=== PATIENT | male | born 1995 | race African-American/Black ===

== ENCOUNTER 2017-09-11 19:32 | Emergency (ER) | payer OTHER ==
[~2017-09-11] VITALS: Ht 188 cm; Wt 118.0 kg
[~2017-09-11 19:32] MED LIST: AMOX/K CLAV875 M1 PO; AMOXIL500 MG OR; LORATADINE10 M1 PO; LOTRISONE CREAM15 GM EX; MEDDOSEPAK PO; NAPROSYN375 MG PO; NAPROSYN500 MG PO; NO; NO HOME MEDS; NO MEDS; TRIMOX500 MG PO
[2017-09-11 20:50] VITALS: BP 150/90
== END 2017-09-11 20:50 | disposition home or self-care (01) | DRG 607 ==
LOC: ED 19:32
DX: L73.8 Other specified follicular disorders (principal)

== ENCOUNTER 2018-04-30 13:33 | Emergency (ER) | payer OTHER ==
[~2018-04-30] VITALS: Ht 188 cm; Wt 136.4 kg
[2018-04-30 13:45] VITALS: BP 128/82
[2018-04-30] MEDS ORDERED: BENADRYL 50MG C50 MG PO (13:50)
[2018-04-30] MEDS ORDERED: HYDROCORT0.51 EX (13:50)
== END 2018-04-30 13:54 | disposition home or self-care (01) | DRG 607 ==
LOC: ED 13:33
DX: L25.9 Unspecified contact dermatitis, unspecified cause (principal)

== ENCOUNTER 2018-06-27 15:14 | Emergency (ER) | payer OTHER ==
[~2018-06-27] VITALS: Ht 188 cm; Wt 149.0 kg
[~2018-06-27 15:14] MED LIST changes: +BENADRYL 50MG C50 MG PO; +HYDROCORT0.51 EX
[2018-06-27] MEDS ORDERED: TORADOL PO (16:47)
[2018-06-27 16:51] VITALS: BP 127/83
== END 2018-06-27 16:52 | disposition home or self-care (01) | DRG 556 ==
LOC: ED 15:14
DX: M25.561 Pain in right knee (principal)

== ENCOUNTER 2018-07-05 02:35 | Emergency (ER) | payer OTHER ==
[~2018-07-05] VITALS: Ht 188 cm; Wt 139.8 kg
[~2018-07-05 02:35] MED LIST changes: +TORADOL PO
[2018-07-05 03:34] VITALS: BP 142/83
== END 2018-07-05 03:41 | disposition home or self-care (01) | DRG 93 ==
LOC: ED 02:35
DX: R20.2 Paresthesia of skin (principal)

== ENCOUNTER 2018-07-22 12:43 | Emergency (ER) | payer OTHER ==
[~2018-07-22] VITALS: Ht 188 cm; Wt 136.4 kg
[2018-07-22 13:32] LABS: URINE BILIRUBIN - DIPSTICK NEGATIVE (NEGATIVE); URINE BLOOD DIPSTICK NEGATIVE (NEGATIVE); URINE COLOR YELLOW; URINE GLUCOSE - DIPSTICK NEGATIVE (NEGATIVE); URINE KETONE 15 mg/dL (NEGATIVE); URINE LEUK ESTERASE NEGATIVE (NEGATIVE); URINE NITRITE - DIPSTICK NEGATIVE (Negative); URINE PH 5.5 (4.5-8.0); URINE PROTEIN - DIPSTICK NEGATIVE (NEG-TRACE); URINE SPECIFIC GRAVITY >=1.030; URINE UROBILINOGEN - DIPSTICK 0.2 E.U./dL (0.2)
[2018-07-22 13:34] LABS: URINE CLARITY CLEAR
[2018-07-22] MEDS ORDERED: PYRIDIUM200 MG PO (14:13)
[2018-07-22 14:30] VITALS: BP 148/74
== END 2018-07-22 14:30 | disposition home or self-care (01) | DRG 690 ==
LOC: ED 12:43
PROVIDERS: Emergency Medicine
DX: N34.2 Other urethritis (principal)

== ENCOUNTER 2019-04-09 00:44 | Emergency (ER) | payer OTHER ==
[~2019-04-09] VITALS: Ht 188 cm; Wt 136.0 kg
[~2019-04-09 00:44] MED LIST changes: +PYRIDIUM200 MG PO
[2019-04-09 01:25] VITALS: BP 126/74
== END 2019-04-09 01:25 | disposition home or self-care (01) | DRG 93 ==
LOC: ED 00:44
DX: R20.2 Paresthesia of skin (principal)

== ENCOUNTER 2019-05-01 04:33 | Emergency (ER) | payer OTHER ==
[~2019-05-01] VITALS: Ht 188 cm; Wt 140.2 kg
[2019-05-01 05:42] LABS: URINE BILIRUBIN - DIPSTICK NEGATIVE (NEGATIVE); URINE BLOOD DIPSTICK NEGATIVE (NEGATIVE); URINE COLOR YELLOW; URINE GLUCOSE - DIPSTICK NEGATIVE (NEGATIVE); URINE KETONE NEGATIVE (NEGATIVE); URINE LEUK ESTERASE NEGATIVE (NEGATIVE); URINE NITRITE - DIPSTICK NEGATIVE (Negative); URINE PH 5.5 (4.5-8.0); URINE PROTEIN - DIPSTICK NEGATIVE (NEG-TRACE); URINE SPECIFIC GRAVITY >=1.030; URINE UROBILINOGEN - DIPSTICK 0.2 E.U./dL (0.2)
[2019-05-01 05:42] LABS: HEMATOCRIT 41.5 % (39.0-50.0); HEMOGLOBIN 13.2 g/dl (14.0-18.0); IMMATURE GRANULOCYTES 0.2 % (0.0-5.0); MEAN CELL VOLUME 86.6 fL CALC (80.0-100.0); MEAN CORPUSCULAR HGB 27.6 pG CALC (26.0-32.0); MEAN CORPUSCULAR HGB CONC 31.8 g/L CALC (32.0-36.0); NEUT# 2.16 thou/uL (1.82-7.42); RED BLOOD COUNT 4.79 mill/uL (4.70-6.10); RED CELL DISTRI WIDTH 13.8 % (11.5-15.5)
[2019-05-01 05:59] LABS: AMYLASE 63 u/l (30-110); ANION GAP 13 (6-22 (CALC)); BUN 13 mg/dL (9-20); BUN/CREATININE RATIO 16 (12-20 (CALC)); CARBON DIOXIDE 24 mmol/l (22-30); CHLORIDE 108 mmol/l (95-108); CREATININE 0.9 mg/dL (0.7-1.3); GFR > 60 ML/MIN (>=60 (CALC)); GFR FOR AFR.AMER. > 60 ML/MIN (>=60 (CALC)); LIPASE 92 u/l (23-300); POTASSIUM 3.7 mmol/l (3.5-5.1); SGOT/AST 27 u/l (17-59); SODIUM 141 mmol/l (137-146); TOTAL PROTEIN 7.8 g/dL (6.3-8.2)
[2019-05-01 06:00] LABS: ALKALINE PHOSPHATASE 93 u/l (38-126); BILIRUBIN, TOTAL 0.3 mg/dL (0.0-1.4)
[2019-05-01] MEDS ORDERED: MIRALAX3350 N1 PO (06:12)
[2019-05-01] MEDS ORDERED: NYSTATI1 TOP (06:12)
[2019-05-01 06:34] VITALS: BP 119/78
== END 2019-05-01 06:34 | disposition home or self-care (01) | DRG 392 ==
LOC: ED 04:33
PROVIDERS: Family Medicine
DX: K59.00 Constipation, unspecified (principal); R11.0 Nausea; B35.6 Tinea cruris

== ENCOUNTER 2020-06-10 19:20 | Emergency (ER) | payer OTHER ==
[~2020-06-10] VITALS: Ht 188 cm; Wt 136.3 kg
[~2020-06-10 19:20] MED LIST changes: +MIRALAX3350 N1 PO; +NYSTATI1 TOP
[2020-06-10] MEDS ORDERED: TRIAMCINOLON0.0252 EX (19:35)
[2020-06-10 19:53] VITALS: BP 132/72
== END 2020-06-10 19:53 | disposition home or self-care (01) | DRG 607 ==
LOC: ED 19:20
DX: L30.9 Dermatitis, unspecified (principal)

== ENCOUNTER 2020-09-18 20:14 | Emergency (ER) | payer OTHER ==
[~2020-09-18] VITALS: Ht 188 cm; Wt 136.4 kg
[~2020-09-18 20:14] MED LIST changes: +TRIAMCINOLON0.0252 EX
[2020-09-18 20:18] VITALS: BP 127/85
== END 2020-09-18 20:45 | disposition home or self-care (01) | DRG 880 ==
LOC: ED 20:14
DX: F41.9 Anxiety disorder, unspecified (principal); N52.9 Male erectile dysfunction, unspecified

== ENCOUNTER 2021-07-30 06:06 | Emergency (ER) | payer OTHER ==
[~2021-07-30] VITALS: Ht 188 cm; Wt 136.0 kg
[2021-07-30 06:46] LABS: URINE BILIRUBIN - DIPSTICK NEGATIVE (NEGATIVE); URINE BLOOD DIPSTICK NEGATIVE (NEGATIVE); URINE COLOR YELLOW; URINE GLUCOSE - DIPSTICK NEGATIVE (NEGATIVE); URINE KETONE NEGATIVE (NEGATIVE); URINE LEUK ESTERASE NEGATIVE (NEGATIVE); URINE NITRITE - DIPSTICK NEGATIVE (Negative); URINE PROTEIN - DIPSTICK NEGATIVE (NEG-TRACE); URINE UROBILINOGEN - DIPSTICK 0.2 E.U./dL (0.2)
[2021-07-30] MEDS ORDERED: DOXYCYC MONO100 M2 PO (07:02)
[2021-07-30 07:14] VITALS: BP 142/72
== END 2021-07-30 07:15 | disposition home or self-care (01) | DRG 696 ==
LOC: ED 06:06
PROVIDERS: Emergency Medicine
DX: R30.0 Dysuria (principal); N48.89 Other specified disorders of penis; Z20.2 Contact with and (suspected) exposure to infections with a predominantly sexual mode of transmission

== ENCOUNTER 2022-10-26 07:59 | Emergency (ER) | payer SELFPAY ==
[~2022-10-26] VITALS: Ht 188 cm; Wt 149.6 kg
[~2022-10-26 07:59] MED LIST changes: +DOXYCYC MONO100 M2 PO
[2022-10-26 08:06] VITALS: BP 146/90
[2022-10-26 08:43] LABS: BASO% 0.6 % (0-3); EOS% 1.7 % (0-8); HEMATOCRIT 41.7 % (39.0-50.0); HEMOGLOBIN 13.7 g/dl (14.0-18.0); LYMPH% 40.8 % (15-41); MEAN CORPUSCULAR HGB 28.9 pG CALC (26.0-32.0); MEAN CORPUSCULAR HGB CONC 32.9 g/dL CAL (32.0-36.0); MONO% 6.7 % (2-13); NEUT# 2.63 thou/uL (1.82-7.42); NEUT% 50.2 % (42-76); RED BLOOD COUNT 4.74 mill/uL (4.70-6.10); RED CELL DISTRI WIDTH 13.5 % (11.5-15.5)
[2022-10-26 08:59] LABS: ALBUMIN 4.2 g/dL (3.2-5.0); ALKALINE PHOSPHATASE 82 u/l (38-126); ANION GAP 7 (6-22 (CALC)); BILIRUBIN, TOTAL 0.2 mg/dL (0.0-1.4); BUN 12 mg/dL (9-20); BUN/CREATININE RATIO 13 (12-20 (CALC)); CALCULATED LDLCHOLESTEROL 121 mg/dL (62-129 (CALC)); CHLORIDE 105 mmol/l (95-108); CHOLESTEROL HDL RATIO 5.4 (<4.4 (CALC)); CREATININE 0.9 mg/dL (0.7-1.3); GFR FOR AFR.AMER. > 60 ML/MIN (>=60 (CALC)); GFR OTHER RACES > 60 ML/MIN (>=60 (CALC)); HDL CHOLESTEROL 33 mg/dL (>=40); POTASSIUM 3.9 mmol/l (3.5-5.1); SGOT/AST 32 u/l (17-59); SODIUM 138 mmol/l (137-146); TOTAL CHOLESTEROL 179 mg/dl (0-199); TOTAL TRIGLYCERIDES 125 mg/dl (30-149); VLDL CHOLESTROL 25 mg/dl (1-36 (CALC))
[2022-10-26 09:01] LABS: CARBON DIOXIDE 30 mmol/l (22-30)
[2022-10-26 09:30] LABS: TSH, 3RD GENERATION 2.08 uIU/mL (0.47 - 4.68)
[2022-10-26] MEDS ORDERED: VIAGRA100 MG PO (09:42)
[2022-10-26 09:50] VITALS: BP 146/90
== END 2022-10-26 09:55 | disposition home or self-care (01) | DRG 313 ==
LOC: ED 07:59
PROVIDERS: Family Medicine
DX: R07.9 Chest pain, unspecified (principal)

== ENCOUNTER 2023-04-26 11:50 | Emergency (ER) | payer SELFPAY ==
[2023-04-26] VITALS (7 sets, daily range): BP systolic 124–148; BP diastolic 57–94
[~2023-04-26] VITALS: Ht 188 cm; Wt 136.0 kg
[~2023-04-26 11:50] MED LIST changes: +VIAGRA100 MG PO
[2023-04-26 14:30] LABS: BASO% 0.2 % (0-3); HEMATOCRIT 44.1 % (39.0-50.0); HEMOGLOBIN 13.8 g/dl (14.0-18.0); IMMATURE GRANULOCYTES 0.3 % (0.0-5.0); MEAN CELL VOLUME 85.8 fL CALC (80.0-100.0); MEAN CORPUSCULAR HGB 26.8 pG CALC (26.0-32.0); MEAN CORPUSCULAR HGB CONC 31.3 g/dL CAL (32.0-36.0); MONO% 5.6 % (2-13); NEUT# 9.99 thou/uL (1.82-7.42); NEUT% 89.9 % (42-76); RED BLOOD COUNT 5.14 mill/uL (4.70-6.10); RED CELL DISTRI WIDTH 13.2 % (11.5-15.5)
[2023-04-26 20:13] LABS: URINE BILIRUBIN - DIPSTICK NEGATIVE (NEGATIVE); URINE BLOOD DIPSTICK NEGATIVE (NEGATIVE); URINE CLARITY CLEAR; URINE COLOR YELLOW; URINE GLUCOSE - DIPSTICK NEGATIVE (NEGATIVE); URINE KETONE NEGATIVE (NEGATIVE); URINE LEUK ESTERASE NEGATIVE (Negative); URINE NITRITE - DIPSTICK NEGATIVE (Negative); URINE PH 7.5 (4.5-8.0); URINE PROTEIN - DIPSTICK NEGATIVE (NEG-TRACE); URINE UROBILINOGEN - DIPSTICK 0.2 E.U./dL (0.2)
[2023-04-26 21:09] LABS: ALBUMIN 3.9 g/dL (3.2-5.0); ALKALINE PHOSPHATASE 78 u/l (38-126); BUN 11 mg/dL (9-20); BUN/CREATININE RATIO 12 (12-20 (CALC)); CHLORIDE 106 mmol/l (95-108); CREATININE 0.9 mg/dL (0.7-1.3); GFR FOR AFR.AMER. > 60 ML/MIN (>=60 (CALC)); GFR OTHER RACES > 60 ML/MIN (>=60 (CALC)); POTASSIUM 3.8 mmol/l (3.5-5.1); SGOT/AST 35 u/l (17-59); SODIUM 138 mmol/l (137-146); TOTAL PROTEIN 7.5 g/dL (6.3-8.2)
[2023-04-26 21:11] LABS: ANION GAP 13 (6-22 (CALC)); BILIRUBIN, TOTAL 0.7 mg/dL (0.2-1.3); CARBON DIOXIDE 23 mmol/l (22-30)
== END 2023-04-26 21:40 | disposition home or self-care (01) | DRG 866 ==
LOC: ED 11:50
PROVIDERS: Family Medicine
DX: B34.9 Viral infection, unspecified (principal); Z20.822 Contact with and (suspected) exposure to COVID-19

== ENCOUNTER 2023-04-29 19:25 | Emergency (ER) | payer SELFPAY ==
[~2023-04-29] VITALS: Ht 188 cm; Wt 136.0 kg
[2023-04-29 20:31] LABS: BASO% 0.4 % (0-3); EOS% 0.3 % (0-8); HEMOGLOBIN 13.8 g/dl (14.0-18.0); IMMATURE GRANULOCYTES 0.2 % (0.0-5.0); LYMPH% 15.6 % (15-41); MEAN CELL VOLUME 85.8 fL CALC (80.0-100.0); MEAN CORPUSCULAR HGB 26.9 pG CALC (26.0-32.0); MEAN CORPUSCULAR HGB CONC 31.4 g/dL CAL (32.0-36.0); MONO% 10.7 % (2-13); NEUT# 7.59 thou/uL (1.82-7.42); NEUT% 72.8 % (42-76); RED BLOOD COUNT 5.13 mill/uL (4.70-6.10); RED CELL DISTRI WIDTH 13.3 % (11.5-15.5)
[2023-04-29 20:40] LABS: ALBUMIN 4.1 g/dL (3.2-5.0); ALKALINE PHOSPHATASE 111 u/l (38-126); BUN 15 mg/dL (9-20); BUN/CREATININE RATIO 12 (12-20 (CALC)); CHLORIDE 101 mmol/l (95-108); CREATININE 1.3 mg/dL (0.7-1.3); GFR FOR AFR.AMER. > 60 ML/MIN (>=60 (CALC)); GFR OTHER RACES > 60 ML/MIN (>=60 (CALC)); POTASSIUM 3.6 mmol/l (3.5-5.1); SGOT/AST 34 u/l (17-59); SODIUM 139 mmol/l (137-146); TOTAL PROTEIN 8.6 g/dL (6.3-8.2)
[2023-04-29 20:45] LABS: ANION GAP 14 (6-22 (CALC)); CARBON DIOXIDE 28 mmol/l (22-30)
[2023-04-29 21:37] LABS: URINE BILIRUBIN - DIPSTICK SEE COMMNET (NEGATIVE); URINE COLOR YELLOW; URINE GLUCOSE - DIPSTICK NEGATIVE (NEGATIVE); URINE KETONE TRACE mg/dL (NEGATIVE); URINE PROTEIN - DIPSTICK 100 mg/dL (NEG-TRACE); URINE SPECIFIC GRAVITY 1.025
[2023-04-29 21:38] LABS: URINE BLOOD DIPSTICK NEGATIVE (NEGATIVE); URINE LEUK ESTERASE NEGATIVE (NEGATIVE); URINE NITRITE - DIPSTICK NEGATIVE (Negative); URINE RBC 0-2 RBC/hpf (0-5); URINE WBC 0-2 WBC/hpf (0-5)
[2023-04-29] MEDS ORDERED: VOLTAREN - GENE75 MG PO (21:54)
[2023-04-29 22:33] VITALS: BP 143/84
== END 2023-04-29 22:47 | disposition home or self-care (01) | DRG 313 ==
LOC: ED 19:25
PROVIDERS: Emergency Medicine
DX: R07.89 Other chest pain (principal)
CPT/HCPCS: Q9967

== ENCOUNTER 2023-05-03 11:17 | Emergency (ER) | payer OTHER ==
[~2023-05-03] VITALS: Ht 188 cm; Wt 136.0 kg
[~2023-05-03 11:17] MED LIST changes: +VOLTAREN - GENE75 MG PO
[2023-05-03 11:24] VITALS: BP 143/90
[2023-05-03 11:31] VITALS: BP 140/77
[2023-05-03] MEDS ORDERED: VOLTAREN1%GEL TOP (12:40)
[2023-05-03] MEDS ORDERED: TRAMADOL HYDROC50 M1 PO (12:40)
[2023-05-03 12:51] VITALS: BP 140/77
== END 2023-05-03 13:04 | disposition home or self-care (01) | DRG 313 ==
LOC: ED 11:17
DX: R07.89 Other chest pain (principal); E66.01 Morbid (severe) obesity due to excess calories